=== PATIENT | male | born 1975 | race African-American/Black ===

== ENCOUNTER 2021-06-22 11:05 | Emergency (ER) | payer OTHER ==
[~2021-06-22] VITALS: Ht 170.2 cm; Wt 57.2 kg
[2021-06-22 11:09] VITALS: BP 122/75
--- NOTE | 2021-06-22 11:20 | NUR ---
PA at bedside for exam.
--- NOTE | 2021-06-22 11:45 | NUR ---
title i math tutor completed. Covid swab performed by PA. Pt aware of results not given prior to d/c today and will be called to him.
== END 2021-06-22 12:00 | disposition home or self-care (01) ==
LOC: ED 11:50
DX: R50.9 Fever, unspecified (principal); Z20.822 Contact with and (suspected) exposure to COVID-19
CPT/HCPCS: 99283; U0003; U0005

== ENCOUNTER 2021-07-15 16:17 | Emergency (ER) | payer OTHER ==
[~2021-07-15] VITALS: Ht 170.2 cm; Wt 58.6 kg
[2021-07-15 16:29] VITALS: BP 115/78
== END 2021-07-15 16:43 | disposition home or self-care (01) ==
LOC: ED 16:25
DX: K52.9 Noninfective gastroenteritis and colitis, unspecified (principal)
CPT/HCPCS: 99281